=== PATIENT | male | born 1955 | race Caucasian/White ===

== ENCOUNTER 2023-03-08 15:07 | Emergency (ER) | payer BC, OTHER ==
[2023-03-08 15:41] VITALS: RESP 18; BMI 19.5
[2023-03-08 18:12] LABS: INR 1.2 (0.83-1.09); PROTHROMBIN TIME (PATIENT) 13.9 SEC (9.7-13.0)
[2023-03-08 18:14] LABS: BASO % 0.3 % (0-2.0); EOS % 0.3 % (0-4.5); HEMATOCRIT 34.3 % (35.4-49); HEMOGLOBIN 11.7 GM/dL (11.7-16.9); LYMPH % 13.6 % (8-40); MCH 29.4 pg (25.7-33.7); MCHC 34.3 g/dl (32.0-35.9); MEAN CELL VOLUME 85.8 fl (80-96); NEUT % 74.8 % (42.8-82.8); RBC 3.99 M/mm3 (4.00-5.60); RDW 13.9 % (11.9-15.9); WHITE BLOOD COUNT 4.2 K/mm3 (4.0-10.0)
[2023-03-08 18:15] LABS: ACTIVATED PTT 30.7 SECONDS (25.2-36.5)
[2023-03-08 18:20] LABS: POTASSIUM 3.8 mmol/L (3.5-5.1)
[2023-03-08 18:22] LABS: ALBUMIN 3.7 g/dl (3.4-5.0); BLOOD UREA NITROGEN 9.5 mg/dL (7-18); CALCIUM 8.5 mg/dL (8.5-10.1)
[2023-03-08 18:25] LABS: CREATININE 0.8 mg/dL (0.55-1.3)
[2023-03-08 18:27] LABS: BILIRUBIN,TOTAL 0.8 mg/dL (0.2-1); TOT PROT 7.1 g/dl (6.4-8.2)
[2023-03-08 18:43] LABS: MEAN PLT VOLUME 7.3 fl (7.5-11.1); PLATELET COUNT 81 10^3/uL (134-434)
[2023-03-08 19:28] VITALS: BP 129/76; PULSE 69; TEMP 98.1
== END 2023-03-08 19:29 | disposition home or self-care (01) ==
LOC: JER 15:07
DX: U07.1 COVID-19 (principal); R42 Dizziness and giddiness; R11.0 Nausea
CPT/HCPCS: 0241U-QW; 36415; 71045-TC-FY; 80053; 83735; 84484; 85025; 85610; 85730; 93005; 93010; 99285-25